=== PATIENT | male | born 1995 | race Caucasian/White ===

== ENCOUNTER 2018-11-06 07:41 | Emergency (ER) | payer OTHER | END 2018-11-06 10:50 | disposition home or self-care (01) | LOC: FTE 07:41 | DX: S49.92XA Unspecified injury of left shoulder and upper arm, initial encounter (principal); X58.XXXA Exposure to other specified factors, initial encounter; Y92.89 Other specified places as the place of occurrence of the external cause | CPT/HCPCS: 73030; 99283-25 ==